=== PATIENT | female | born 1950 | race Caucasian/White ===

== ENCOUNTER → 2017-06-09 | Outpatient (CLI) | payer MEDICARE, OTHER ==
--- NOTE | 2017-06-09 19:08 | Diagnostic Imaging Report ---
INDICATION: Routine screening. The current study was also evaluated with a Computer Aided Detection (CAD) system. Comparison is made with prior studies from 09/29/2015 and 09/26/2014. FINDINGS: Moderate parenchymal density and heterogeneity is noted. The parenchymal pattern is stable. No dominant mass or malignant-appearing microcalcifications are seen. The axillae are unremarkable. IMPRESSION: No mammographic features suspicious for malignancy are identified. ACR BI-RADS Category 1: Negative. Result letter will be mailed to the patient. Note: At least 10% of breast cancer is not imaged by mammography. Dictated by: Dictated on workstation # [id number]
== END ==
LOC: RAD 13:44
PROVIDERS: ATTEND Nurse Practitioner Family
DX: Z12.31 Encounter for screening mammogram for malignant neoplasm of breast (principal)
CPT/HCPCS: 77067

== ENCOUNTER → 2017-08-21 | Outpatient (CLI) | payer MEDICARE, OTHER ==
--- NOTE | 2017-08-21 15:52 | Diagnostic Imaging Report ---
INDICATION: Screening for osteoporosis. COMPARISON is made with prior study from 09/23/2013. EXAM: Bone mineral analysis of the lumbar spine and both hips was performed. FINDINGS: Bone mineral density of the lumbar spine from L2-L4 is 1.087 with a T score of -0.9. This compares with 1.143 and -0.5. The bone mineral density of the left femoral neck is 0.830 with a T score -1.5. This compares with 0.922 and -0.8. The bone mineral density in the right femoral neck is 0.845 with a T score of -1.4. This compares with 0.943 and -0.7. IMPRESSION: Normal bone mineral density of the lumbar spine with osteopenia of bilateral femoral necks. Dictated by: Dictated on workstation # [id number]
== END ==
LOC: RAD 11:38
PROVIDERS: ATTEND Nurse Practitioner Family
DX: Z13.820 Encounter for screening for osteoporosis (principal); M85.88 Other specified disorders of bone density and structure, other site
CPT/HCPCS: 77080

== ENCOUNTER 2017-10-06 15:27 | Outpatient (CLI) | payer MEDICARE, OTHER ==
[~2017-10-06] VITALS: Ht 154.9 cm; Wt 72.6 kg
[~2017-10-06 15:27] MED LIST: ALEN70TA47 PO
[2017-10-06] MEDS ORDERED: ROSU40TA22 PO (15:37)
[2017-10-06] MEDS ORDERED: POTA-51 PO (15:37)
[2017-10-06] MEDS ORDERED: WARF-48 PO (15:37)
[2017-10-06] MEDS ORDERED: ASPI-586 PO (15:37)
[2017-10-06] MEDS ORDERED: LEVO100T7 PO (15:37)
[2017-10-06] MEDS ORDERED: WARF2.5T82 PO (15:37)
[2017-10-06] MEDS ORDERED: CHOL200025 PO (15:37)
[2017-10-06] MEDS ORDERED: CARV6.252 PO (15:37)
== END 2017-10-06 16:29 ==
LOC: PREOP 15:28
PROVIDERS: ATTEND Surgery
DX: Z01.818 Encounter for other preprocedural examination (principal)

== ENCOUNTER 2017-10-13 11:51 | Day surgery (SDC) | payer MEDICARE, OTHER ==
[~2017-10-13 11:51] MED LIST changes: +ASPI-586 PO; +CARV6.252 PO; +CHOL200025 PO; +LEVO100T7 PO; +POTA-51 PO; +ROSU40TA22 PO; +WARF-48 PO; +WARF2.5T82 PO
[2017-10-13] MEDS ORDERED: LACTATED RINGERS 1,000 ML IV ONE (12:01)
[2017-10-13] MEDS ORDERED: LACTATED RINGERS 1,000 ML IV STA (12:35)
[2017-10-13 12:46] VITALS: BP 144/68
[2017-10-13] MEDS ORDERED: PROPOFOL INJECTION 50 ML IV ONE (13:43)
[2017-10-13] MEDS ORDERED: MIDAZOLAM 2 MG/2 ML (VERSED) VIAL ONE (13:43)
--- NOTE | 2017-10-13 13:48 | Progress Note-Pre Operative ---
Pre-Operative Progress Note H&P Reviewed The H&P was reviewed, patient examined and no changes noted. Time Seen by Provider: 13:44 Date H&P Reviewed: Oct 13, 2017 Time H&P Reviewed: 13:45 Pre-Operative Diagnosis: Abnormal Coagulation, Change in bowel habits JOSIAH SANCHEZ DO Oct 13, 2017 13:47
[2017-10-13 15:00] VITALS: BP 128/62
--- NOTE | 2017-10-13 15:01 | Progress Note-Post Operative ---
Post-Operative Progess Note Surgeon (s)/Food And Beverage Coordinator (s) Surgeon JOSIAH SANCHEZ DO Food And Beverage Coordinator: none Pre-Operative Diagnosis Abnormal Coagulation, Change in bowel habits Post-Operative Diagnosis Same plus Diverticula Int Hemorrhoids Procedure & Operative Findings Date of Procedure 10/13/17 Procedure Performed/Findings colonoscopy Anesthesia Type IV sedation by MARINE CONSULTANT Estimated Blood Loss Estimated blood loss (mL): none Specimens/Packing Specimens Removed none JOSIAH SANCHEZ DO Oct 13, 2017 15:01
--- NOTE | 2017-10-13 15:02 | Endoscopy Discharge Instruct ---
Endo Procedure/Findings Findings 1.: Diverticulosis 2.: Internal Hemorrhoids Discharge Instructions - Activity: You might feel a little sleepy until tomorrow. This is due to the medicine you received to relax you. Until tomorrow, you should: NOT drive a car, operate machinery or power tools. NOT drink any alcoholic beverages. NOT make any important decisions or sign importortant papers. Do not return to work until tomorrow, unless otherwise instructed. Resume previous activities tomorrow. Diet: Start by taking liquids. If you tolerate liquids, advance to solid food. Make appointment for one week. Notify Physician - If you experience excessive bleeding, unusual abdominal pain, fever, or chest pain, contact your doctor immediately. Follow-Up: - I have received and understand the above instructions and will call my doctor if I have any further questions. Patient Signature Date Nurse Signature Other (Relationship) JOSIAH SANCHEZ DO Oct 13, 2017 15:02
[2017-10-13 15:22] VITALS: BP 130/66
[2017-10-13 15:26] VITALS: BP 130/66
--- NOTE | 2017-10-13 15:45 | Anesthesia-General Post-Op ---
MAC Patient Condition Mental Status/LOC: Same as Preop Cardiovascular: Satisfactory Nausea/Vomiting: Absent Respiratory: Satisfactory Pain: Controlled Complications: Absent Post Op Complications Complications None Follow Up Care/Instructions Patient Instructions None needed. Anesthesiology Discharge Order Discharge Order Patient was seen after the procedure by Tara Avila and she was doing well, no complaints, stable vital signs, no apparent adverse anesthesia problems. ANNETTE VASQUEZ DO Oct 13, 2017 15:45
--- NOTE | 2017-10-13 22:55 | OPERATIVE REPORT ---
DATE OF SERVICE: PREOPERATIVE DIAGNOSIS: Change in bowel habits. POSTOPERATIVE DIAGNOSIS: Diverticula internal hemorrhoids. PROCEDURE: Colonoscopy. SURGEON: Cliffodr Colón DO. OUTREACH MANAGER: None. ANESTHESIA: IV sedation by the DIRECTOR OF APPLICATION DEVELOPMENT. SPECIMENS: None. BLOOD LOSS: None. FLUIDS: Per anesthesia. POSTOPERATIVE CONDITION: Stable. INDICATION FOR PROCEDURE: The patient is a 67-year-old female who has been having some bowel changes. She is also on blood thinners, needed a colonoscopy. FINDINGS: The patient had some diverticula and some internal hemorrhoids, but no other obvious pathology seen. PROCEDURE NOTE: After informed consent was obtained, the patient was brought to the endoscopy suite and placed in the bed in left lateral decubitus position. She was administered IV sedation by the DIRECTOR OF APPLICATION DEVELOPMENT who then monitored her vitals the entire time, heart rate, blood pressure and pulse ox, and the scope was inserted, pushed all the way to about 140 cm, able to get to the cecum, took a picture of appendiceal orifice, noted the ileocecal valve and then slowly withdrew the scope insufflating to look circumferentially johnson looking at the cecum up the ascending colon to the hepatic flexure, then down the transverse colon, the splenic flexure, then down in the descending colon and sigmoid colon, saw some diverticula in the descending colon and sigmoid colon and actually one in the ascending colon, continued down through the sigmoid colon into the rectum, retroflexed in the rectal vault, saw some internal hemorrhoids, took a picture of this and then removed the scope. The patient tolerated the procedure and she was recovered in the endoscopy suite. Job ID: [id number] DocumentID: [id number] Dictated Date: 10/13/2017 17:12:09 Kaitara Taraka Date: 10/13/2017 22:54:44 Dictated By: CLIFFORD COLÓN DO
== END 2017-10-13 15:31 | disposition home or self-care (01) ==
LOC: ENDO 11:51
PROVIDERS: ATTEND Surgery
DX: R19.4 Change in bowel habit (principal); K57.30 Diverticulosis of large intestine without perforation or abscess without bleeding; K64.8 Other hemorrhoids; I10 Essential (primary) hypertension; J44.9 Chronic obstructive pulmonary disease, unspecified; G47.33 Obstructive sleep apnea (adult) (pediatric); Z95.2 Presence of prosthetic heart valve; Z79.01 Long term (current) use of anticoagulants; Z79.899 Other long term (current) drug therapy